=== PATIENT | female | born 1985 | race Caucasian/White ===

== ENCOUNTER 2017-10-31 18:05 | Emergency (ER) | payer MEDICAID ==
[~2017-10-31] VITALS: Ht 157.5 cm; Wt 51.7 kg
[2017-10-31 18:20] VITALS: Ht 157.5 cm; Wt 51.7 kg
[2017-10-31 20:19] LABS: microscopic required? YES; urine erythrocyte 3+ (NEGATIVE)
[2017-10-31 20:24] LABS: BASOPHIL % 0.6 % (0-2); PLATELET COUNT 298 x10^3mcL (130-400); RED CELL DISTRIBUTION WIDTH 13.6 % (11.5-14.5)
[2017-10-31 22:58] VITALS: BP 128/55
== END 2017-10-31 22:45 | disposition home or self-care (01) ==
LOC: ED 18:05
PROVIDERS: Emergency Medicine
DX: O20.0 Threatened abortion (principal); O23.41 Unspecified infection of urinary tract in pregnancy, first trimester; Z3A.01 Less than 8 weeks gestation of pregnancy; Z88.5 Allergy status to narcotic agent
CPT/HCPCS: 36415

== ENCOUNTER 2018-02-18 23:43 | Emergency (ER) | payer MEDICAID ==
[~2018-02-18] VITALS: Ht 157.5 cm; Wt 53.5 kg
[2018-02-19 00:27] VITALS: Ht 157.5 cm; Wt 53.5 kg
[2018-02-19 01:53] LABS: BASOPHIL % 0.9 % (0-2); PLATELET COUNT 307 x10^3mcL (130-400); RED CELL DISTRIBUTION WIDTH 12.5 % (11.5-14.5)
[2018-02-19 02:02] LABS: UA SPECIFIC GRAVITY 1.025 (1.005-1.035); microscopic required? YES; urine erythrocyte TRACE (NEGATIVE)
[2018-02-19 03:42] VITALS: BP 103/59
== END 2018-02-19 04:30 | disposition home or self-care (01) ==
LOC: ED 23:43
PROVIDERS: Emergency Medicine
DX: O20.0 Threatened abortion (principal); Z3A.01 Less than 8 weeks gestation of pregnancy; Z88.5 Allergy status to narcotic agent
CPT/HCPCS: 36415